=== PATIENT | male | born 1970 | race Caucasian/White ===

== ENCOUNTER 2017-01-21 22:51 | Emergency (ER) | payer SELFPAY ==
[~2017-01-21] VITALS: Ht 177.8 cm; Wt 83.3 kg
[~2017-01-21 22:51] MED LIST: HYDR10SO PO
[2017-01-21 22:54] VITALS: BP 124/92; PULSE 81; RESP 16; TEMP 97.8; O2SAT 97
[2017-01-22] MEDS ORDERED: CYCL1TAB29 PO (00:47)
[2017-01-22] MEDS ORDERED: HYDR-3366 PO (00:47)
[2017-01-22 00:48] VITALS: BP 124/92; PULSE 81; RESP 16; TEMP 97.8; O2SAT 97
[2017-01-22] MEDS ORDERED: BACT800T5 PO (01:26)
--- NOTE | 2017-01-22 01:28 | PD ---
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 He was bitten in the left axilla, and of the penis, right flank and all of these areas have swollen up and become erythematous. There is no necrosis noted of these areas yet. He worked today and this clearly made the lesions worse. His last tetanus shot was less than 5 years ago. 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) Hepatitis: Yes (HEP C) Herniated Disk: Yes ("ELEVEN HERNIATED DISCS") Musculoskeletal: Yes (BACK ISSUES) Ulcer: Yes (GASTRIC) Tetanus Vaccination: Unknown Influenza Vaccination: No Social History Alcohol Use: Yes (6-8 BEERS PER WEEK) Tobacco Use: Yes (1 PPD) Substance Use: No (HX OF COKE USE) Allergies-Medications (Allergen,Severity, Reaction): Coded Allergies: Actifed (Verified Allergy, Severe, RASH, 01/22/17) Cipro (Verified Allergy, Severe, HIVES/RASH, 01/22/17) Levaquin (Verified Allergy, Severe, HIVES/RASH, 01/22/17) Reported Meds & Prescriptions Reported Meds & Active Scripts Active Reported Flexeril (Cyclobenzaprine HCl) 10 Mg Tab 10 Mg PO TID [place] (Hydrocodone-Acetaminophen) 10-325 Mg Tab 1 Tab PO Q6H PRN Review of Systems Except as stated in HPI: all other systems reviewed are Neg Physical Exam Narrative GENERAL: Well-nourished, well-developed patient in slight apparent distress with his multiple bite lesions. SKIN: Focused skin assessment warm/dry. The lesions all appear as erythematous papules 1 cm or less in diameter. They're located on the right flank, left axilla and into the penis. The one on the right flank has an area of about 5 cm diameter cellulitic formation/erythema. The left axilla shows almost no erythema in the penis shows about 4 cm of erythema. They all appear to be bite gilliam. HEAD: Normocephalic. EYES: No scleral icterus. No injection or drainage. NECK: Supple, trachea midline. No JVD or lymphadenopathy. CARDIOVASCULAR: Regular rate and rhythm without murmurs, gallops, or rubs. RESPIRATORY: Breath sounds equal bilaterally. No accessory muscle use. GASTROINTESTINAL: Abdomen soft, non-tender, nondistended. MUSCULOSKELETAL: No cyanosis, or edema. BACK: Nontender without obvious deformity. No CVA tenderness. Data Data Last Documented VS Vital Signs Date Time Temp Pulse Resp B/P Pulse Ox O2 Delivery O2 Flow Rate FiO2 01/22/17 00:50 81 18 01/22/17 00:48 97.8 124/92 97 MDM Medical Decision Making Medical Screen Exam Complete: Yes Emergency Medical Condition: Yes Medical Record Reviewed: Yes Differential Diagnosis Spider bites, other insect bites, cellulitis, allergic reaction Narrative Course The patient may have spider bites in these areas. There is no evidence for any necrosis, they are all erythematous and no blackened areas have shown up yet. Plan: The patient will use warm compresses on the areas. He is given Septra DS for any cellulitis formation. A heating pad can be used on its lowest setting and interposing a towel between his skin and the pad. He is given a work excuse for 5 days. Diagnosis Primary Impression: Spider bite Additional Instructions: As we discussed, if you use a heating pad turned on its lowest setting an interposed a towel between your skin and the pad. The antibiotic is free at [facility] and is taken one tablet twice daily for 10 days. If these areas start turning black it will be necessary to follow-up with a endocrinology teacher or similar specialist. Med/Other Pt SpecificInfo: Prescription(s) given Scripts Sulfamethoxazole-Trimethoprim (Bactrim DS)800-160 Mg Tab1 Tab PO BID #20 TAB Ref 0 Prov:Edis Menon MD 01/22/17 Disposition: 01 DISCHARGE HOME Condition: Stable Edis Menon MD January 22, 2017 01:28
[2017-01-22] MEDS ORDERED: SULFAMETHOXAZOLE-TRIMETHOPRIM DS 800-160 MG TAB PO ONE (01:30)
[2017-01-22 01:37] VITALS: BP 122/84; PULSE 78; RESP 18; O2SAT 98
== END 2017-01-22 01:39 | disposition home or self-care (01) ==
LOC: PHED 22:51
DX: S30.861A Insect bite (nonvenomous) of abdominal wall, initial encounter (principal); S40.862A Insect bite (nonvenomous) of left upper arm, initial encounter; S30.862A Insect bite (nonvenomous) of penis, initial encounter; F17.200 Nicotine dependence, unspecified, uncomplicated; Z87.19 Personal history of other diseases of the digestive system; Z86.19 Personal history of other infectious and parasitic diseases; Z87.39 Personal history of other diseases of the musculoskeletal system and connective tissue; W57.XXXA Bitten or stung by nonvenomous insect and other nonvenomous arthropods, initial encounter; Y99.0 Civilian activity done for income or pay
CPT/HCPCS: 99282